=== PATIENT | female | born 1965 | race Two or more races ===

== ENCOUNTER 2017-02-22 20:06 | Emergency (ER) | payer MEDICAID ==
[~2017-02-22] VITALS: Ht 165.1 cm; Wt 72.6 kg
--- NOTE | 2017-02-22 20:09 | NUR ---
pt bibra from home to er bed . c/o n/v/d x 2 days. 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 awaiting md bryan.
--- NOTE | 2017-02-22 20:26 | NUR ---
naima gregory at bedside for eval.
[2017-02-22] MEDS ORDERED: ONDANSETRON 4 MG TAB.RAPDIS ONE ×2 (20:28→22:32)
[2017-02-22] MEDS ORDERED: LORAZEPAM INJ 2 MG/ML VIAL ONE ×2 (20:29→21:49)
[2017-02-22] MEDS ORDERED: ONDANSETRON 4 MG TAB.RAPDIS SL ONE ×2 (20:30→22:30)
[2017-02-22] MEDS ORDERED: LORAZEPAM INJ 2 MG/ML VIAL IM ONE ×2 (20:30→22:00)
[2017-02-22] MEDS ORDERED: LORAZEPAM 1 MG TABLET PO ONE (22:00)
--- NOTE | 2017-02-22 22:37 | NUR ---
feeling much better. Patient discharged to home in stable condition. Written and verbal after care instructions given. Patient verbalizes understanding of instruction.
[2017-02-22 22:38] VITALS: BP 135/87
== END 2017-02-22 22:39 | disposition home or self-care (01) ==
LOC: ER 20:07
DX: F41.0 Panic disorder [episodic paroxysmal anxiety] (principal); F32.9 Major depressive disorder, single episode, unspecified; F90.9 Attention-deficit hyperactivity disorder, unspecified type; J45.909 Unspecified asthma, uncomplicated
CPT/HCPCS: A4606; J2060; Q0162; Z7610

== ENCOUNTER 2017-02-24 10:47 | Emergency (ER) | payer MEDICAID ==
[~2017-02-24] VITALS: Ht 157.5 cm; Wt 79.4 kg
--- NOTE | 2017-02-24 10:50 | NUR ---
PRESENTS SELF TO ED FOR ANXIETY ATTACK THIS AM, PT STATES "I WANT ATIVAN". PATIENT CRYING AT THIS TIME. VSS
--- NOTE | 2017-02-24 10:53 | NUR ---
EKG IN PROGRESS
[2017-02-24] MEDS ORDERED: ONDANSETRON HCL/PF 4 MG/2 ML VIAL IVP ONE (12:30)
[2017-02-24] MEDS ORDERED: LORAZEPAM INJ 2 MG/ML VIAL IV ONE ×2 (12:30→14:30)
[2017-02-24] MEDS ORDERED: IV NS 0.9% 1,000 ML BAG IV ONE (12:30)
[2017-02-24 13:04] LABS: BASOPHILS # (AUTO) 0.2 /CMM (0.0-0.2); BASOPHILS % (AUTO) 1.5 % (0.0-2.0); EOSINOPHILS % (AUTO) 0.3 % (0.0-6.0); HEMATOCRIT 51 % (33-45); HEMOGLOBIN 16.8 g/dL (11.5-14.8); LYMPHOCYTES # (AUTO) 2.3 /CMM (0.8-4.8); LYMPHOCYTES % (AUTO) 16.1 % (20.0-44.0); MEAN CORPUSCULAR HEMOGLOBIN 29 PG (26.0-33.0); MEAN CORPUSCULAR HGB CONC 33 g/dl (31.0-36.0); MEAN CORPUSCULAR VOLUME 89 fL (82-100); MONOCYTES # (AUTO) 0.5 /CMM (0.1-1.30); MONOCYTES % (AUTO) 3.5 % (2.0-12.0); NEUTROPHILS # (AUTO) 11.1 /CMM (1.8-8.9); NEUTROPHILS % (AUTO) 78.6 % (43.0-81.0); PLATELET COUNT (AUTO) 447 /CMM (150-450); RDW COEFFICIENT OF VARIATION 13.5 (11.5-15.0); RED BLOOD CELL COUNT(AUTO) 5.76 MIL/uL (4.0-5.2); WHITE BLOOD COUNT (AUTO) 14.1 K/uL (4.3-11.0)
[2017-02-24 13:15] LABS: CALCIUM, SERUM 10.5 mg/dL (8.5-10.1); CREATININE 1.7 mg/dL (0.6-1.3); POTASSIUM 3.1 mmol/L (3.5-5.1)
[2017-02-24 13:21] LABS: ALBUMIN 5.1 g/dL (3.4-5.0); BILIRUBIN,DIRECT 0.1 mg/dL (0.0-0.2); BILIRUBIN,TOTAL 0.7 mg/dL (0.2-1.0); TOTAL PROTEIN, SERUM 9.2 g/dL (6.4-8.2)
[2017-02-24 14:17] LABS: APPEARANCE,URINE Slightly Cloudy (CLEAR); BILIRUBIN,URINE SMALL (NEGATIVE); BLOOD, URINE Moderate Ery/uL (NEGATIVE); KETONES,URINE 15 (NEGATIVE); LEUKOCYTE ESTERASE ,URINE Negative (NEGATIVE); NITRITE, URINE Negative (NEGATIVE); PROTEIN,URINE >=300 mg/dl (NEGATIVE); UGLUCOSE Negative (NEGATIVE); UROBILINOGEN,URINE 0.2 EU/dL (0.2)
[2017-02-24 14:21] LABS: COLOR,URINE Dark Yellow (YELLOW)
[2017-02-24 14:26] LABS: BACTERIA,URINE Many /HPF (None Seen); HYALINE CASTS, URINE Few /LPF (None Seen); SQUAMOUS EPITHELIAL CELL,UR Many /HPF (None Seen)
[2017-02-24] MEDS ORDERED: POTASSIUM CHLORIDE 20 MEQ TAB.PRT.SR PO ONE ×2 (14:30→14:45)
[2017-02-24] MEDS ORDERED: LORAZEPAM 1 MG TABLET ONE (14:45)
[2017-02-24] MEDS ORDERED: LORAZEPAM INJ 2 MG/ML VIAL ONE (14:47)
[2017-02-24 17:05] VITALS: BP 112/80
--- NOTE | 2017-02-24 17:05 | NUR ---
Patient discharged to home in stable condition. Written and verbal after care instructions given. Patient verbalizes understanding of instruction.
== END 2017-02-24 17:07 | disposition home or self-care (01) ==
LOC: EDUNIT# 10:47 → ER 10:51
DX: N28.9 Disorder of kidney and ureter, unspecified (principal); F41.9 Anxiety disorder, unspecified; E87.6 Hypokalemia; F17.200 Nicotine dependence, unspecified, uncomplicated
CPT/HCPCS: 36415; 80048-TC; 80076-TC; 81000-TC; 83690-TC; 85025-TC; 87086-TC; A4606; J2060; J7030; Z7610

== ENCOUNTER 2019-07-03 22:33 | Emergency (ER) | payer MEDICAID ==
[~2019-07-03] VITALS: Ht 157.5 cm; Wt 90.7 kg
--- NOTE | 2019-07-03 23:31 | NUR ---
PT AAOX4. AMBULATORY. PT [id number] FROM HOME C/O ANXIETY X2 DAYS. PER PATIENT "I MADE A MISTAKE AT WORK AND I WORRIED ABOUT IT FOR TOO LONG TILL I STARTED TO THROW UP." -SI, PT CRYING IN BED. PT PLACED ON MONITOR AND PULSE OX. NO ACUTE DISTRESS NOTED.
[2019-07-03] MEDS ORDERED: LORAZEPAM INJ 2 MG/ML VIAL ONE (23:33)
--- NOTE | 2019-07-04 00:28 | NUR ---
Patient is resting comfortably in bed. Easily aroused. VSS.
[2019-07-04] MEDS ORDERED: MAG HYDROX/AL HYDROX/SIMETH 30 ML UDC ONE (00:48)
[2019-07-04] MEDS ORDERED: LIDOCAINE VISCOUS 2% UD 15 ML UDC ONE (00:49)
[2019-07-04] MEDS ORDERED: ONDANSETRON 4 MG TAB.RAPDIS ONE (00:49)
[2019-07-04] MEDS ORDERED: DICYCLOMINE HCL 10 MG/5 ML UDC ONE (00:51)
[2019-07-04] MEDS ORDERED: BELLADONNA /PHENOBARB 5 ML UDC 5 ML UDC PO ONE (01:00)
[2019-07-04] MEDS ORDERED: MAG HYDROX/AL HYDROX/SIMETH 30 ML UDC PO ONE (01:00)
[2019-07-04] MEDS ORDERED: LIDOCAINE VISCOUS 2% UD 15 ML UDC MM ONE (01:00)
[2019-07-04] MEDS ORDERED: ONDANSETRON 4 MG TAB.RAPDIS SL ONE (01:00)
[2019-07-04] MEDS ORDERED: DICYCLOMINE HCL 10 MG/5 ML UDC PO ONE (01:30)
--- NOTE | 2019-07-04 02:22 | NUR ---
REPatient is resting comfortably in bed with eyes closed. Easily aroused. VSS.
[2019-07-04] MEDS ORDERED: ONDANSETRON HCL/PF - ER 4 MG/2 ML VIAL IM ONE (02:30)
[2019-07-04] MEDS ORDERED: ONDANSETRON HCL/PF 4 MG/2 ML VIAL ONE (02:35)
--- NOTE | 2019-07-04 03:29 | NUR ---
PT RESTING COMFORTABLY. VSS.
[2019-07-04] MEDS ORDERED: LORAZEPAM INJ 2 MG/ML VIAL ONE (04:26)
[2019-07-04] MEDS ORDERED: LORAZEPAM INJ 2 MG/ML VIAL IM ONE ×2 (04:30)
--- NOTE | 2019-07-04 05:30 | NUR ---
Patient discharged to home in stable condition. Written and verbal after care instructions given. Patient verbalizes understanding of instruction.Patient is awake and alert to self, day, and place. pt ambulatory with a steady gait
[2019-07-04 06:30] VITALS: BP 162/84
== END 2019-07-04 05:30 | disposition home or self-care (01) ==
LOC: ER 22:34
DX: F41.9 Anxiety disorder, unspecified (principal); F17.200 Nicotine dependence, unspecified, uncomplicated; I10 Essential (primary) hypertension; Z88.8 Allergy status to other drugs, medicaments and biological substances
CPT/HCPCS: 96372 ×3; 99284; J2060 ×2; J2405 ×2; Q0162